=== PATIENT | male | born 1990 | race Caucasian/White ===

== ENCOUNTER 2022-09-22 11:44 | Emergency (ER) | payer OTHER ==
[~2022-09-22] VITALS: Ht 182.9 cm; Wt 76.2 kg
[2022-09-22] MEDS ORDERED: EMTRICITABINE-1 EACH PO (12:15)
== END 2022-09-22 15:23 | disposition home or self-care (01) ==
LOC: ER 11:44
DX: J02.9 Acute pharyngitis, unspecified (principal)